=== PATIENT | male | born 1975 | race Caucasian/White ===

== ENCOUNTER 2016-11-28 07:02 | Emergency (ER) | payer BC ==
--- NOTE | 2016-11-28 07:08 | UC ---
Throat Pain/Nasal Tha HPI - HPI Summary HPI Summary: Sore throat and cough for about 5 days. Fever has resolved. cough is mainly dry. he is generally better but symptoms persist particularly inthe morning. - History of Current Complaint Stated Complaint: SORE THROAT,COUGH,CONGESTION Time Seen by Provider: 11/28/16 07:04 Hx Obtained From: Patient Onset/Duration: Gradual Onset Severity: Moderate Cough: Nonproductive Associated Signs & Symptoms: Positive: Dysphagia. Negative: Wheezing, Hoarseness, Sinus Discomfort, Nasal Discharge, Fever, Vomiting, Rash - Epiglottits Risk Factors Epiglottis Risk Factors: Negative - Allergies/Home Medications Allergies/Adverse Reactions: Allergies Allergy/AdvReac Type Severity Reaction Status Date / Time Sulfa Antibiotics Allergy Unknown Verified 11/28/16 07:09 Reaction Details Home Medications: Home Medications Pseudoephedrine-Guaifenesin [Mucinex D 60-600 mg] 1 tab PO Q12HR PRN 11/28/16 [ History Confirmed 11/28/16] PMH/Surg Hx/FS Hx/Imm Hx Endocrine History Of: Denies: Diabetes - Surgical History Surgical History: None - Family History Known Family History: Positive: Other - no fh related to his throat. - Social History Occupation: Employed Full-time Lives: With Family Smoking Status (MU): Never Smoked Tobacco Review of Systems All Other Systems Reviewed And Are Negative: Yes Physical Exam Triage Information Reviewed: Yes Appearance: Well-Appearing, No Pain Distress, Well-Nourished Vital Signs Reviewed: Yes Eye Exam: Normal Eyes: Positive: Conjunctiva Clear. Negative: Conjunctiva Inflamed ENT: Positive: Pharyngeal erythema, Nasal congestion. Negative: Nasal drainage , TMs normal, TM bulging, TM dull, TM red, Tonsillar swelling, Tonsillar exudate , Trismus, Muffled/hoarse voice Neck exam: Normal Neck: Positive: Supple, Nontender, No Lymphadenopathy. Negative: Nuchal Rigidity Respiratory: Positive: Lungs clear - occassional dry cough while I am in the room., Normal breath sounds, No respiratory distress, No accessory muscle use. Negative: Respiratory distress, Decreased breath sounds, Accessory muscle use, Crackles, Rhonchi, Stridor, Wheezing Cardiovascular: Positive: RRR, No Murmur, Pulses Normal Abdominal Exam: Normal Abdomen Description: Positive: Nontender, No Organomegaly, Soft Musculoskeletal Exam: Normal Musculoskeletal: Positive: Strength Intact, ROM Intact, No Edema Neurological Exam: Normal Neurological: Positive: Alert, Muscle Tone Normal. Negative: Fatigued, Lethargic, Unresponsive, Abnormal Muscle Tone Psychological Exam: Normal Skin Exam: Normal Skin: Negative: rashes Throat Pain/Nasal Course/Dx - Course Course Of Treatment: no signs of bacterial infection. TEssalon perles and tylenol with codeine. Z pack if not improved in 10 days. - Differential Dx/Diagnosis Differential Diagnosis/HQI/PQRI: Epiglottitis, Foreign Body, Influenza, Laryngitis, Franklin's Angina, Mononucleosis, Otitis Media, Peritonsillar Abscess , Pharyngitis, Sinusitis, Tonsillitis Provider Diagnoses: acute bronchitis. Discharge - Discharge Plan Condition: Good Disposition: HOME Prescriptions: Acetaminop/Codeine 30 MG TAB* [Tylenol/Codeine 30 MG TAB*] 1 tab PO BEDTIME PRN #10 tab MDD 1 PRN Reason: Cough Azithromyxin BRIGHT (NF) [Z-Bright (Zithromax) 250 mg tabs #6] 2 tab PO .TODAY, THEN 1 DAILY #6 tab Benzonatate CAP* [Tessalon 100 MG CAP*] 100 mg PO TID PRN #20 cap PRN Reason: Cough Patient Education Materials: Acute Bronchitis (ED) Referrals: Brooklyn Cunha [Primary Care Provider] - If Needed
[2016-11-28 07:15] VITALS: BP 135/86
== END 2016-11-28 07:43 | disposition home or self-care (01) ==
LOC: UCCORT 07:02
DX: J20.9 Acute bronchitis, unspecified (principal); Z88.2 Allergy status to sulfonamides
CPT/HCPCS: 99202; G0463

== ENCOUNTER 2017-06-24 07:10 | Emergency (ER) | payer BC ==
[2017-06-24 07:20] VITALS: BP 137/81
--- NOTE | 2017-06-24 07:30 | UC ---
Throat Pain/Nasal Tha HPI - HPI Summary HPI Summary: sore throat x 7 days + productive cough , nasal congestion , pnd no fever, no chills - History of Current Complaint Chief Complaint: UCRespiratory Stated Complaint: SORE THROAT COUGH ACHY Time Seen by Provider: 06/24/17 07:14 Hx Obtained From: Patient Onset/Duration: Gradual Onset, Lasting Days - 7, Still Present Severity: Moderate Associated Signs & Symptoms: Positive: Nasal Discharge. Negative: Dysphagia, FB Sensation, Drooling, Wheezing, Hoarseness, Sinus Discomfort, Fever, Vomiting , Rash - Allergies/Home Medications Allergies/Adverse Reactions: Allergies Allergy/AdvReac Type Severity Reaction Status Date / Time Sulfa Antibiotics Allergy Unknown Verified 11/28/16 07:09 Reaction Details Home Medications: Home Medications Phenylephrine-Chlorpheniramine [Darshana-[place] Plus Cold &] 1 cap PO BEDTIME 06/24 [History Confirmed 06/24/17] Pseudoephedrine-Guaifenesin [Mucinex D 60-600 mg] 1 tab PO PRN 06/24/17 [History ] PMH/Surg Hx/FS Hx/Imm Hx Previously Healthy: Yes - Surgical History Surgical History: None - Family History Known Family History: Positive: Other - no fh related to his throat. Negative: Diabetes - Social History Alcohol Use: Occasionally Substance Use Type: None Smoking Status (MU): Never Smoked Tobacco - Immunization History Most Recent Influenza Vaccination: Not utd Review of Systems Constitutional: Negative Skin: Negative Eyes: Negative ENT: Negative Respiratory: Negative Cardiovascular: Negative Is Patient Immunocompromised?: No All Other Systems Reviewed And Are Negative: Yes Physical Exam Triage Information Reviewed: Yes Appearance: Well-Appearing, No Pain Distress, Well-Nourished Vital Signs: Initial Vital Signs Temp 98.1 F 06/24/17 07:16 Pulse 75 06/24/17 07:16 Resp 16 06/24/17 07:16 BP 137/81 06/24/17 07:16 Pulse Ox 99 06/24/17 07:16 Vital Signs Reviewed: Yes Eye Exam: Normal Eyes: Positive: Conjunctiva Clear ENT: Positive: Normal ENT inspection, Hearing grossly normal, Pharynx normal, Nasal congestion, TMs normal. Negative: Tonsillar swelling, Tonsillar exudate Neck: Positive: Supple, Nontender, No Lymphadenopathy Respiratory: Positive: Chest non-tender, Lungs clear, Normal breath sounds, No respiratory distress Cardiovascular: Positive: RRR, No Murmur, Pulses Normal Skin Exam: Normal Throat Pain/Nasal Course/Dx - Differential Dx/Diagnosis Provider Diagnoses: URI Discharge - Discharge Plan Condition: Stable Disposition: HOME Patient Education Materials: Upper Respiratory Infection (ED) Referrals: Brooklyn Cunha [Primary Care Provider] - If Needed
== END 2017-06-24 07:39 | disposition home or self-care (01) ==
LOC: UCCORT 07:10
DX: J06.9 Acute upper respiratory infection, unspecified (principal); Z88.2 Allergy status to sulfonamides
CPT/HCPCS: 99211; G0463

== ENCOUNTER 2018-07-03 07:02 | Emergency (ER) | payer BC ==
[2018-07-03 07:17] VITALS: BP 124/75
--- NOTE | 2018-07-03 07:56 | UC ---
Throat Pain/Nasal Tha HPI - HPI Summary HPI Summary: 43 yo with c/o of aches, sore throat and right ear pain for the past 2 days. Denies chills, fever - History of Current Complaint Chief Complaint: UCGeneralIllness Stated Complaint: ST,ACHES,RT EAR PAIN Time Seen by Provider: 07/03/18 07:17 Hx Obtained From: Patient Onset/Duration: Sudden Onset, Lasting Days Severity: Moderate Pain Intensity: 6 Associated Signs & Symptoms: Positive: Nasal Discharge - Epiglottits Risk Factors Epiglottis Risk Factors: Negative - Allergies/Home Medications Allergies/Adverse Reactions: Allergies Allergy/AdvReac Type Severity Reaction Status Date / Time Sulfa (Sulfonamide Allergy Unknown Verified 07/03/18 07:13 Antibiotics) Reaction Details Home Medications: Home Medications Dm/PE/Acetaminophen/Chlorphenr [Darshana-[place] Plus Cold &] 1 cap PO ONCE [History Confirmed 07/03/18] Rosuvastatin Calcium [Crestor] 20 mg PO DAILY 07/03/18 [History Confirmed ] PMH/Surg Hx/FS Hx/Imm Hx Endocrine History: Dyslipidemia - Surgical History Surgical History: None - Family History Known Family History: Positive: Diabetes, Other - Social History Alcohol Use: Rare Substance Use Type: None Smoking Status (MU): Never Smoked Tobacco - Immunization History Most Recent Influenza Vaccination: Not utd Review of Systems All Other Systems Reviewed And Are Negative: Yes ENT: Positive: Sore Throat, Ear Ache Physical Exam Triage Information Reviewed: Yes Appearance: Well-Nourished, Ill-Appearing Vital Signs: Initial Vital Signs Temp 99.7 F 07/03/18 07:11 Pulse 92 07/03/18 07:11 Resp 16 07/03/18 07:11 BP 124/75 07/03/18 07:11 Pulse Ox 98 07/03/18 07:11 Vital Signs Reviewed: Yes Eyes: Positive: Conjunctiva Clear ENT: Positive: Hearing grossly normal, Pharyngeal erythema, TMs normal, Uvula midline Neck: Positive: Supple, Nontender, No Lymphadenopathy Respiratory: Positive: Chest non-tender, Lungs clear, Normal breath sounds, No respiratory distress Cardiovascular: Positive: RRR, No Murmur, Pulses Normal, Brisk Capillary Refill Abdomen Description: Positive: Nontender Throat Pain/Nasal Course/Dx - Course Course Of Treatment: rapid strep positive, will start with amoxil as prescribed , po fluids, rest, f/u with PCP in one week - Differential Dx/Diagnosis Provider Diagnoses: streptococcal pharyngitis Discharge - Sign-Out/Discharge Documenting (check all that apply): Patient Departure All imaging exams completed and their final reports reviewed: No Studies - Discharge Plan Condition: Stable Disposition: HOME Patient Education Materials: Strep Throat (ED), Amoxicillin (By mouth) Referrals: Brooklyn Cunha [Primary Care Provider] - - Billing Disposition and Condition Condition: STABLE Disposition: Home
== END 2018-07-03 08:04 | disposition home or self-care (01) ==
LOC: UCCORT 07:02
DX: J02.0 Streptococcal pharyngitis (principal); Z88.1 Allergy status to other antibiotic agents
CPT/HCPCS: 87651; 99212; G0463

== ENCOUNTER 2019-02-02 07:00 | Emergency (ER) | payer BC ==
[2019-02-02 07:14] VITALS: BP 148/89
[2019-02-02] MEDS ORDERED: Azithromycin TAB* 250 MG PO ONE (07:28)
--- NOTE | 2019-02-02 07:29 | UC ---
Respiratory Complaint HPI - HPI Summary HPI Summary: 44-year-old male comes in with a chief complaint of chest congestion. Patient' s had upper respiratory tract infection symptoms for about 2-1/2 weeks. He had green rhinorrhea and sinus pressure which has cleared but then infections got into his chest. No wheezing. He does have a lot of congestion primarily in the morning which getting up and moving around coughing improves the symptoms. The phlegm is slightly yellow color. Patient is not a smoker. - History of Current Complaint Chief Complaint: UCGeneralIllness Stated Complaint: CHEST/SINUS CONGESTION Time Seen by Provider: 02/02/19 07:22 Pain Intensity: 0 - Allergies/Home Medications Allergies/Adverse Reactions: Allergies Allergy/AdvReac Type Severity Reaction Status Date / Time Sulfa (Sulfonamide Allergy Unknown Verified 02/02/19 07:14 Antibiotics) Reaction Details Home Medications: Home Medications D-Methorphan/PE/Acetaminophen [Darshana-[place] Plus Sinus-Cough] 1 tab PO ONCE 08/11 [History Confirmed 02/02/19] Loratadine 1 tab PO DAILY 02/02/19 [History Confirmed 02/02/19] guaiFENesin [Mucinex] 1 tab PO ONCE 02/02/19 [History Confirmed 02/02/19] PMH/Surg Hx/FS Hx/Imm Hx Previously Healthy: Yes Endocrine History: Dyslipidemia - Surgical History Surgical History: None - Family History Known Family History: Positive: Diabetes, Other - Social History Alcohol Use: None Substance Use Type: None Smoking Status (MU): Never Smoked Tobacco - Immunization History Most Recent Influenza Vaccination: Not utd Review of Systems All Other Systems Reviewed And Are Negative: Yes Constitutional: Positive: Negative Skin: Positive: Negative Eyes: Positive: Negative ENT: Positive: Nasal Discharge, Sinus Congestion, Sinus Pain/Tenderness Respiratory: Positive: Other - see hpi Cardiovascular: Positive: Negative Gastrointestinal: Positive: Negative Motor: Positive: Negative Neurovascular: Positive: Negative Musculoskeletal: Positive: Negative Neurological: Positive: Negative Psychological: Positive: Negative Is Patient Immunocompromised?: No Physical Exam Triage Information Reviewed: Yes Appearance: Well-Appearing, No Pain Distress, Well-Nourished Vital Signs: Initial Vital Signs Temp 97.9 F 02/02/19 07:11 Pulse 68 02/02/19 07:11 Resp 20 02/02/19 07:11 BP 148/89 02/02/19 07:11 Pulse Ox 100 02/02/19 07:11 Vital Signs Reviewed: Yes Eye Exam: Normal Eyes: Positive: Conjunctiva Clear ENT: Positive: Pharynx normal, Nasal congestion, TMs normal Neck exam: Normal Neck: Positive: Supple Respiratory: Positive: Lungs clear, Normal breath sounds, No respiratory distress Cardiovascular: Positive: RRR Musculoskeletal Exam: Normal Musculoskeletal: Positive: Strength Intact, ROM Intact Neurological Exam: Normal Neurological: Positive: Alert, Muscle Tone Normal Psychological Exam: Normal Psychological: Positive: Age Appropriate Behavior Skin Exam: Normal Respiratory Course/Dx - Differential Dx/Diagnosis Provider Diagnosis: Bronchitis Discharge - Sign-Out/Discharge Documenting (check all that apply): Patient Departure All imaging exams completed and their final reports reviewed: No Studies - Discharge Plan Condition: Stable Disposition: HOME Prescriptions: Azithromycin TAB* [Zithromax TAB (Z-MAX) 250 mg #6 tabs] 250 mg PO DAILY #4 tab Patient Education Materials: Acute Bronchitis (ED) Referrals: Brooklyn Cunha [Primary Care Provider] - Additional Instructions: FOLLOW UP WITH YOUR DOCTOR IF NOT COMPLETELY IMPROVED. GET RECHECKED SOONER IF YOUR CONDITION WORSENS OR ANY QUESTIONS OR CONCERNS. - Billing Disposition and Condition Condition: STABLE Disposition: Home
== END 2019-02-02 07:37 | disposition home or self-care (01) ==
LOC: UCCORT 07:00
DX: J40 Bronchitis, not specified as acute or chronic (principal)
CPT/HCPCS: 99212; A9270-GY; G0463